=== PATIENT | female | born 1965 | race Caucasian/White ===

== ENCOUNTER → 2019-07-17 | Outpatient (CLI) | payer BC | LOC: M.RAD 16:39 | DX: M16.0 Bilateral primary osteoarthritis of hip (principal) ==

== ENCOUNTER → 2020-01-27 | Outpatient (CLI) | payer BC ==
[~2020-01-27] MED LIST: BUPROPION XL300 MG PO; HUMALOG100 UNIT/1; NEURONTIN 400M400 M2 PO; TOUJEO SOL300 UNIT/1; ULTRAM 50MG TAB50 MG
== END ==
LOC: M.PC 07:30
PROVIDERS: ATTEND Physical Medicine & Rehabilitation
DX: M25.552 Pain in left hip (principal); M79.605 Pain in left leg; M54.5 Low back pain; M25.562 Pain in left knee

== ENCOUNTER → 2020-02-03 | Outpatient (CLI) | payer BC | END | disposition home or self-care (01) | LOC: M.PC 07:53 | PROVIDERS: ATTEND Physical Medicine & Rehabilitation | DX: M25.552 Pain in left hip (principal); M16.12 Unilateral primary osteoarthritis, left hip; M24.152 Other articular cartilage disorders, left hip; I10 Essential (primary) hypertension; E11.9 Type 2 diabetes mellitus without complications; Z98.890 Other specified postprocedural states; Z79.899 Other long term (current) drug therapy; Z88.8 Allergy status to other drugs, medicaments and biological substances ==